=== PATIENT | male | born 1990 | race Caucasian/White ===

== ENCOUNTER 2017-06-11 23:45 | Emergency (ER) | payer OTHER ==
[~2017-06-11] VITALS: Ht 180.3 cm; Wt 65.9 kg
[2017-06-12] MEDS ORDERED: PERCOCET 5MG/325MG TAB PO ONE (01:00)
[2017-06-12] MEDS ORDERED: AUGM875T28 PO (01:14)
[2017-06-12] MEDS ORDERED: NORCOTAB PO (01:15)
[2017-06-12] MEDS ORDERED: NORCO 5/325MG TABLET (BULK FOR ED) PO ONE (01:30)
[2017-06-12] MEDS ORDERED: AUGMENTIN 875 MG TAB PO ONE (01:30)
[2017-06-12 01:36] VITALS: BP 133/82
== END 2017-06-12 01:55 | disposition home or self-care (01) ==
LOC: M ED 23:45
DX: K08.89 Other specified disorders of teeth and supporting structures (principal)